=== PATIENT | female | born 1960 | race Caucasian/White ===

== ENCOUNTER 2025-03-24 17:44 | Emergency (ER) | payer MEDICAID ==
[~2025-03-24] VITALS: Ht 160 cm; Wt 56.7 kg
[2025-03-24 17:47] VITALS: BP 147/75
[2025-03-24] MEDS ORDERED: KETOROLAC TROMETHAMINE 15 MG INJ ONE (17:58)
[2025-03-24] MEDS: KETOROLAC TROMETHAMINE 15 MG INJ IM ONE (18:01)
[2025-03-24] MEDS ORDERED: HYDR-3980 PO ×2 (18:19→18:21)
[2025-03-24] MEDS ORDERED: IBUP-1957 PO (18:19)
[2025-03-24] MEDS: HYDROCODONE/APAP 10-325 MG TABLET PO ONE (18:27)
[2025-03-24] MEDS ORDERED: HYDROCODONE/APAP 10-325 MG TABLET ONE (18:27)
[2025-03-24] MEDS ORDERED: ONDA-243 PO (18:34)
[2025-03-24 18:48] VITALS: BP 145/70; TEMP 98; O2SAT 98
== END 2025-03-24 18:49 | disposition home or self-care (01) ==
LOC: ER 17:49
DX: S52.354A Nondisplaced comminuted fracture of shaft of radius, right arm, initial encounter for closed fracture (principal); W01.0XXA Fall on same level from slipping, tripping and stumbling without subsequent striking against object, initial encounter; Y93.89 Activity, other specified; Y92.89 Other specified places as the place of occurrence of the external cause; Y99.9 Unspecified external cause status
CPT/HCPCS: 29125; 73090; 73110; 73130; 96372; 99284; J1885; A4606; A4663